=== PATIENT | female | born 1985 | race Caucasian/White ===

== ENCOUNTER 2020-01-10 08:00 | Outpatient (RCR) | payer BC, SELFPAY ==
--- NOTE | 2020-01-03 10:05 | [facility].PTOPEV ---
PT Outpatient Evaluation Rehab PT Outpatient Evaluation Start: 01/03/20 09:33 Freq: Status: Active Protocol: Document 01/03/20 09:36 JORDAN (Rec: 01/03/20 10:05 JORDAN [id number]) Electronically Signed By Vimal Goetz PT 01/03/20 09:36 Outpatient Therapy Subjective History Subjective History This is the initial Physical Therapy evaluation for Nadia Rick. Pt reports to PT for c/o L>R upper trapezius and cervical pain. Pt also reports c/o LIND's and some paresthesia into LUE. Pt reports she has been having intermittant pain since 2011. 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 Pt reports she has had multiple bout of chiropractor and PT w/ relief. Pt reports this bout began ~ 2 months w/ insidious onset. Chief Complaint Pain,Stiff,Paresthesia, Weakness Symptom Type Ache,Throb,Sharp,Burning Symptoms Relieved By Rest/Positioning Symptoms Aggravated By Physical Activity Prior Functional Limitations None Current Functional Limitations Lifting,Housework,Driving, Recreation Activity Symptom Description Constant but Variable Level of pain today (0-10) 3 Pain scale - at its best (0-10) 3 Pain scale - at its worst (0-10) 5 Cervical Eval Palpation Cervical Muscles L Upper Trapezius,L Thoracic Paraspinals Cervical/Thoracic Palpation Findings Tenderness,Trigger Point Passive Joint Mobility Cervical PIVM Dec: R C4/5 R C5/6 R C6/7 R C7/T1 AROM Cervical Spine Extension Active Range of 45 Motion (degrees) Cervical Spine Flexion Active Range of 55 Motion (degrees) Cervical Spine Right Lateral Flexion 45 Active Range of Motion (degrees) Cervical Spine Left Lateral Flexion 45 Active Range of Motion (degrees) Cervical Spine Right Rotation Active 80 Range of Motion (degrees) Cervical Spine Left Rotation Active 50 Range of Motion (degrees) MMT Right Deltoid (C5) 5 Normal Biceps Brachii Strength Grade 5 Normal Wrist Extension Strength Grade 5 Normal Triceps Brachii Strength Grade 5 N
== END 2020-01-10 09:00 | disposition home or self-care (01) ==
LOC: PT 08:00
PROVIDERS: Visit Provider Internal Medicine Adolescent Medicine
DX: M54.12 Radiculopathy, cervical region (principal)
CPT/HCPCS: 97010; 97012; 97014; 97110; 97140; 97163; G0283

== ENCOUNTER → 2020-02-29 10:03 | Outpatient (CLI) | payer BC, SELFPAY ==
[2020-02-29 10:45] LABS: Basophils # 0.1 K/mm3 (0-0.2); Basophils % 0.9 % (0.1-2.0); Eosinophils % 0.5 % (0.1-12.0); Hematocrit 42.1 % (37.0-47.0); Hemoglobin 13.7 g/dL (12.2-16.2); Lymphocytes # 1.5 K/mm3 (0.7-4.5); Lymphocytes % 20.6 % (10-50); Mean Corpuscular HGB Conc 32.6 g/dL (31.8-35.4); Mean Corpuscular Hemoglobin 30.2 pg (27.0-31.2); Mean Corpuscular Volume 92.6 fl (81-99); Mean Platelet Volume 7.6 fl (7.4-10.4); Monocytes # 0.4 K/mm3 (0.1-1.0); Monocytes % 5.8 % (1.7-9.3); Neutrophils # 5.1 K/mm3 (1.8-7.8); Neutrophils % 72.2 % (37.0-80.0); Platelet Count 262 K/mm3 (142-424); Red Blood Count 4.54 M/mm3 (4.20-5.40); Red Cell Distribution Width 12.1 % (11.5-17.5)
[2020-02-29 11:22] LABS: Erythrocyte Sedimentation Rate 11 mm/hr (0-20)
[2020-02-29 11:39] LABS: Alanine Aminotransferase 15 U/L (12-78); Albumin Level 4.7 g/dl (3.5-5.0); Albumin/Globulin Ratio 1.8 (1.1-1.8); Alkaline Phosphatase 64 U/L (38-126); Anion Gap 12.5 mEq/L (5-15); Aspartate Amino Transferase 25 U/L (14-36); Bilirubin,Total 0.8 mg/dl (0.2-1.3); Blood Urea Nitrogen 10 mg/dl (7-17); Calcium 9.9 mg/dl (8.4-10.2); Carbon Dioxide 29 mmol/L (22.0-30.0); Chloride 104 mmol/L (98-107); Estimated Glomerular Filt Rate 81 ml/min (>60); GFR (African American) 98 ML/MIN (>60); Globulin 2.6 g/dL (1.3-3.2); Glucose 62 mg/dl (74-100); Potassium 4.5 mmoL/L (3.5-5.1); Sodium 141 mmol/L (136-145); Total Protein,Serum 7.3 g/dl (6.3-8.2); Uric Acid 4.4 mg/dl (2.5-6.2)
[2020-02-29 11:51] LABS: Triiodothryronine (T3) Uptake 28 % (23.5-40.5)
[2020-02-29 11:52] LABS: T4 (Thyroxine) 10.7 ug/dl (5.53-11.0)
[2020-02-29 12:06] LABS: Thyroid Stimulating Hormone 1.05 uIU/mL (0.465-4.68)
[2020-03-01 13:59] LABS: Anti-Centromere B Antibodies <0.2 AI (0.0-0.9); Anti-Jo-1 <0.2 AI (0.0-0.9); Anti-Smith Antibody <0.2 AI (0.0-0.9); Antichromatin Antibodies <0.2 AI (0.0-0.9); Antiscleroderma-70 Antibodies <0.2 AI (0.0-0.9); RNP Antibodies 0.2 AI (0.0-0.9); Sjogren's Anti-SS-A <0.2 AI (0.0-0.9); Sjogren's Anti-SS-B <0.2 AI (0.0-0.9)
[2020-03-01 14:33] LABS: Anti-DNA (DS) Ab Qn <1 IU/mL (0-9)
[2020-03-02 10:05] LABS: Peripheral Smear Review Scanned Result
[2020-03-02 10:24] LABS: EBV Ab VCA, IgG >600.0 U/mL (0.0-17.9); EBV Ab VCA, IgM <36.0 U/mL (0.0-35.9)
== END ==
PROVIDERS: Visit Provider Internal Medicine Adolescent Medicine
DX: R59.9 Enlarged lymph nodes, unspecified (principal); R53.83 Other fatigue
CPT/HCPCS: 36415; 80053; 84436; 84443; 84479; 84550; 85025; 85651; 86225; 86235; 86664; 86665